=== PATIENT | male | born 1970 | race Caucasian/White ===

== ENCOUNTER 2020-11-17 00:57 | Emergency (ER) | payer MEDICARE, OTHER ==
[~2020-11-17] VITALS: Ht 167.6 cm; Wt 161.0 kg
[~2020-11-17 00:57] MED LIST: ADVAIR 500-501 EACH INH; ALBUTEROL INH; BYETTA; CIPROFLOXACIN500 M1 PO; CLEOCIN HCL300 MG PO; DIABETA 1.25M1.25 M1 PO; GLUCOPHAGE500 MG PO; KEFLEX500 MG PO; LISINOPRIL10 MG PO; NORCO 5-325 TA1 EACH PO
[2020-11-17 01:49] LABS: BARBITURATES Negative (Negative); BENZODIAZEPINES Negative (Negative); COCAINE Negative (Negative); METHADONE Negative (Negative); OPIATES Negative (Negative); PCP Negative (Negative)
[2020-11-17 01:58] LABS: AMP/METHAMP Negative (Negative)
[2020-11-17 02:28] LABS: ABSOLUTE NEUTROPHILS 7.8 thou/uL (1.4-8.2); ANION GAP 9 mmol/L (7-16); BASOPHILS 0.5 % (0.0-2.0); BUN 14 mg/dL (7-18); CALCIUM 9.2 mg/dL (8.5-10.1); CHLORIDE 99 mmol/L (98-107); CO2 30 mmol/L (21-32); CREATININE 1.1 mg/dL (0.7-1.3); EOSINOPHILS 4.2 % (0.0-3.0); GLUCOSE 370 mg/dL (74-106); HEMOGLOBIN 14.1 gm/dL (14.0-18.0); LYMPHOCYTES 23.5 % (24.0-44.0); MCH 29.8 pg (26.0-34.0); MCHC 33.6 g/dL (28.0-37.0); MCV 88.8 fL (80.0-100.0); MONOCYTES 9.9 % (1.0-8.0); PLATELET COUNT 234 thou/uL (150-400); POLYS 61.9 % (36.0-66.0); RBC 4.73 mil/uL (4.50-6.00); RDW 13.4 % (10.5-14.5); SODIUM 138 mmol/L (136-145); WBC 12.6 thou/uL (4.0-11.0)
[2020-11-17 02:34] LABS: ALBUMIN 3.1 g/dL (3.4-5.0); SALICYLATE < 2.8 mg/dL (2.8-20.0); SGOT 14 U/L (15-37); SGPT 28 U/L (16-63); TOTAL BILIRUBIN 0.3 mg/dL (0.2-1.0); TOTAL PROTEIN 6.8 g/dL (6.4-8.2)
[2020-11-17] MEDS ORDERED: DESYREL150 MG PO (04:46)
[2020-11-17] MEDS ORDERED: PRAZOSIN 1 MG CA1 MG PO (04:46)
[2020-11-17] MEDS ORDERED: FLUOXETINE HCL40 MG PO (04:47)
[2020-11-17] MEDS ORDERED: SYMBICORT160 MCG/4. INH (04:47)
[2020-11-17] MEDS ORDERED: NEURONTIN 400400 M1 PO (04:48)
[2020-11-17] MEDS ORDERED: ABILIFY 5 MG TAB5 MG PO (04:48)
[2020-11-17] MEDS ORDERED: JANUMET 50-1,01 EACH PO (05:03)
[2020-11-17 10:00] VITALS: BP 141/72
== END 2020-11-17 10:00 ==
LOC: ER 00:57
PROVIDERS: Emergency Medicine
DX: F32.9 Major depressive disorder, single episode, unspecified (principal); Z20.822 Contact with and (suspected) exposure to COVID-19; R45.851 Suicidal ideations; I10 Essential (primary) hypertension; E11.9 Type 2 diabetes mellitus without complications; J45.909 Unspecified asthma, uncomplicated; Z79.899 Other long term (current) drug therapy